=== PATIENT | male | born 1985 | race Caucasian/White ===

== ENCOUNTER 2023-02-04 13:50 | Outpatient (CLI) | payer OTHER, SELFPAY | END 2023-02-04 13:51 | disposition home or self-care (01) | PROVIDERS: PCP Family Medicine; Visit Provider Family Medicine | DX: Z00.00 Encounter for general adult medical examination without abnormal findings (principal); R63.4 Abnormal weight loss; Z13.6 Encounter for screening for cardiovascular disorders | CPT/HCPCS: 80053; 80061; 84443 ==